=== PATIENT | female | born 1970 | race Caucasian/White ===

== ENCOUNTER 2017-03-09 19:50 | Emergency (ER) | payer BC, OTHER ==
[~2017-03-09] VITALS: Ht 167.6 cm; Wt 118.0 kg
[2017-03-09] MEDS ORDERED: predniSONE 20 mg tablet PO ONE (21:20)
[2017-03-09] MEDS ORDERED: diazepam 5mg tablet PO ONE (21:20)
[2017-03-09] MEDS ORDERED: PRED20TA PO (21:26)
[2017-03-09] MEDS ORDERED: DIAZ5TAB PO (21:26)
[2017-03-09 21:32] VITALS: BP 174/102
== END 2017-03-09 21:40 | disposition home or self-care (01) ==
LOC: ER 19:51
DX: R42 Dizziness and giddiness (principal); F17.200 Nicotine dependence, unspecified, uncomplicated; G43.909 Migraine, unspecified, not intractable, without status migrainosus; G62.9 Polyneuropathy, unspecified; I10 Essential (primary) hypertension; J45.909 Unspecified asthma, uncomplicated; Z88.1 Allergy status to other antibiotic agents; Z88.5 Allergy status to narcotic agent; Z88.8 Allergy status to other drugs, medicaments and biological substances
CPT/HCPCS: 99283; J7512